=== PATIENT | male | born 1990 | race American Indian/Alaskan Native ===

== ENCOUNTER 2016-11-15 11:26 | Emergency (ER) | payer OTHER ==
--- NOTE | 2016-11-15 12:32 | Emergency Department Report ---
HPI - General Chief Complaint: Urogenital-Male Time Seen by Provider: 11/15/16 12:28 - HPI HPI: This is a 26-year-old Afro-[place] male who presents emergency Department with the complaint of a 4 day history of right testicular pain. He denies any trauma to the area. The patient essentially active and does not always use protection. However he denies any history of STDs. He denies any dysuria, skin color change, swelling. He denies any history of hernia. He does not have a primary care doctor. He has been trying some ibuprofen for his symptoms with some transient relief. He denies any nausea, vomiting, fever, low back pain. ED Past Medical Hx - Past Medical History Previous Medical History?: Yes Additional medical history: obesity - Surgical History Past Surgical History?: Yes Additional Surgical History: Left leg surgery with instrumentation - Social History Smoking Status: Current Every Day Smoker Substance Use Type: Alcohol, Marijuana - Medications Home Medications: Home Medications Medication Instructions Recorded Confirmed Last Taken Type Ciprofloxacin HCl [Ciprofloxacin 500 mg PO BID #20 tablet 11/15/16 Unknown Rx TAB] ED Review of Systems ROS: Stated complaint: TESTICLE PAIN Other details as noted in HPI Comment: All other systems reviewed and negative Constitutional: denies: chills, fever Eyes: denies: eye pain, eye discharge, vision change ENT: denies: ear pain, throat pain Respiratory: denies: cough, shortness of breath, wheezing Cardiovascular: denies: chest pain, palpitations Gastrointestinal: denies: abdominal pain, nausea, diarrhea Genitourinary: testicular pain. denies: dysuria Musculoskeletal: denies: back pain, joint swelling, arthralgia Skin: denies: rash, lesions Neurological: denies: headache, weakness, paresthesias Physical Exam - Physical Exam Vital Signs: Vital Signs 11/15/16 11:34 Temperature 98.4 F Pulse Rate 70 Respiratory 18 Rate Blood Pressure 168/106 O2 Sat by Pulse 100 Oximetry Physical Exam: GENERAL: The patient is well-developed well-nourished. HEENT: Normocephalic. Atraumatic. Extraocular motions are intact. Patient has moist mucous membranes. Pupils equal reactive to light bilaterally. NECK: Supple. Trachea is midline. CHEST/LUNGS: Clear to auscultation. There is no respiratory distress noted. HEART/CARDIOVASCULAR: Regular. There is no tachycardia. There is no gallop rub or murmur. ABDOMEN: Abdomen is soft, nontender. Patient has normal bowel sounds. There is no abdominal distention. Morbidly obese habitus. : Patient has tenderness to palpation to the right side of the scrotum and testicle. No palpable inguinal hernias. No lesions. No discharge from the penis. SKIN: There is no rash. There is no edema. There is no diaphoresis. NEURO: The patient is awake, alert, and oriented. The patient is cooperative. The patient has no focal neurologic deficits. The patient has normal speech and gait. MUSCULOSKELETAL: There is no tenderness or deformity. There is no limitation range of motion. There is no evidence of acute injury. ED Course Vital Signs 11/15/16 11:34 Temperature 98.4 F Pulse Rate 70 Respiratory 18 Rate Blood Pressure 168/106 O2 Sat by Pulse 100 Oximetry ED Medical Decision Making - Radiology Data Radiology results: report reviewed Scrotal/testicular ultrasound shows changes consistent with right epididymitis but perhaps more subtle right orchitis. Small right hydrocele. - Medical Decision Making 26-year-old male presents with a few days of right-sided testicular pain. No visible or palpable hernias. No lesions or skin color change. Ultrasound shows right epididymitis with possible subtle right orchitis and small right hydrocele. Patient will go on a ten-day course of antibiotics and will be given referrals for urology and primary care. - Differential Diagnosis torsion, orchitis, epididymitis, urethritis Critical Care Time: No Critical care attestation.: If time is entered above; I have spent that time in minutes in the direct care of this critically ill patient, excluding procedure time. ED Disposition Clinical Impression: Epididymitis, right, Testicular pain Hypertension Qualifiers: Hypertension type: essential hypertension Qualified Code(s): I10 - Essential ( primary) hypertension Disposition: DISCHARGED TO HOME OR SELFCARE Is pt being admited?: No Does the pt Need Aspirin: No Condition: Good Instructions: Epididymitis (ED), Hypertension (ED) Additional Instructions: Please follow up with one of the primary care physician's arrived given you a referral for. I'll also given new a referral for a local urologist, Dr. Page , to follow up regarding your epididymitis and testicular pain. Take the antibiotics as prescribed. Return to the emergency department with any worsening of your symptoms or any acute distress. Prescriptions: Ciprofloxacin HCl [Ciprofloxacin TAB] 500 mg PO BID #20 tablet Referrals: PRIMARY CARE, [Primary Care Provider] - 3-5 Days ZEINA LOPEZ MD [Staff Physician] - 3-5 Days WASHINGTON GALEANA MD [Staff Physician] - 3-5 Days SARAH PAGE MD [Staff Physician] - 3-5 Days Forms: STI Treatment and Prevention Time of Disposition: 16:03
--- NOTE | 2016-11-15 14:31 | Ultrasound Report ---
FINAL REPORT PROCEDURE: US TESTICULAR DOPPLER COMP TECHNIQUE: Grayscale and color imaging as well as duplex Doppler imaging of the scrotum was performed. HISTORY: Right testicular pain COMPARISON: None FINDINGS: The right testicle measures 4.2 x 2.4 x 2.8 centimeters while the left testicle measures 3.5 x 1.7 x 2.7 centimeters. Testicular blood flow is present bilaterally perhaps slightly increased on the right. There is no solid or cystic intra testicular lesion. There is no testicular microlithiasis. Small right hydrocele is seen. Asymmetrical mild prominence of the right epididymis when compared to the left as well as increased blood flow of the right epididymal body and tail when compared to the left is seen. There is a 4 x 2 x 5 millimeter cyst of the right epididymal head. There is no varicocele. IMPRESSION: Suspect changes of right epididymitis with perhaps more subtle right orchitis. Small right hydrocele.
[2016-11-15 15:56] LABS: Bilirubin,Urine NEG (Negative); Blood,Urine NEG (Negative); Ketones,Urine NEG (Negative); Leukocyte Esterase,Urine SM (Negative); Mucus,Urine FEW /HPF; Nitrite,Urine NEG (Negative); Protein,Urine <15 mg/dL mg/dL (Negative); Urobilinogen,Urine < 2.0 mg/dL (<2.0)
[2016-11-15 16:26] VITALS: BP 147/97
== END 2016-11-15 16:26 | disposition home or self-care (01) ==
LOC: ED 11:26
DX: N45.1 Epididymitis (principal); F17.200 Nicotine dependence, unspecified, uncomplicated; F12.10 Cannabis abuse, uncomplicated
CPT/HCPCS: 81001; 93975

== ENCOUNTER 2018-05-02 03:50 | Emergency (ER) | payer OTHER ==
[2018-05-02 04:19] VITALS: BP 140/83
[2018-05-02] MEDS ORDERED: MOTRIN PO ONE (04:31)
--- NOTE | 2018-05-02 06:07 | XRay Report ---
FINAL REPORT PROCEDURE: XR WRIST 2V RT TECHNIQUE: RIGHT wrist radiographs, AP and lateral views. HISTORY: right wrist pain COMPARISON: No prior studies are available for comparison. FINDINGS: Fracture(s)and/or Dislocation(s): None. Alignment: Normal. Joint space(s): Normal. Soft tissues: Normal. Bone mineralization: Normal. Foreign bodies: None. IMPRESSION: Normal Examination
--- NOTE | 2018-05-02 06:07 | XRay Report ---
FINAL REPORT PROCEDURE: XR SHOULDER 2+V RT TECHNIQUE: Right shoulder radiographs including AP views in internal and external rotation and abduction. CPT 64283 HISTORY: right shoulder pain COMPARISON: No prior studies are available for comparison. FINDINGS: Fracture (s) and/or Dislocation(s): None . Joint space(s): Normal . Soft tissues: Normal . Bone mineralization: Normal . Foreign bodies: None . IMPRESSION: Normal Examination
--- NOTE | 2018-05-02 06:07 | XRay Report ---
FINAL REPORT PROCEDURE: XR FOREARM 1V RT TECHNIQUE: RIGHT forearm radiographs, AP and lateral views. CPT 44418 HISTORY: right forearm pain COMPARISON: No prior studies are available for comparison. FINDINGS: Fracture (s) and/or Dislocation(s): None . Joint space(s): Normal . Soft tissues: Normal . Bone mineralization: Normal . Foreign bodies: None . IMPRESSION: Normal Examination
--- NOTE | 2018-05-02 06:07 | XRay Report ---
FINAL REPORT PROCEDURE: XR HUMERUS 2+V RT TECHNIQUE: RIGHT humerus radiographs, AP and lateral views. HISTORY: right humerus pain COMPARISON: No prior studies are available for comparison. FINDINGS: Fracture (s) and/or Dislocation(s): None . Joint space(s): Normal. Soft tissues: Normal. Bone mineralization: Normal. Foreign bodies: None. IMPRESSION: Normal Examination.
--- NOTE | 2018-05-02 06:07 | XRay Report ---
FINAL REPORT PROCEDURE: XR KNEE BILAT 1-2V TECHNIQUE: Bilateral knee radiographs, AP and lateral views. HISTORY: Bilateral Knee pain COMPARISON: No prior studies are available for comparison. FINDINGS: Fracture (s) and/or Dislocation(s): None . Joint space(s): Normal. Soft tissues: Normal. Bone mineralization: Normal. Foreign bodies: None. IMPRESSION: Normal Examination.
--- NOTE | 2018-05-02 06:07 | XRay Report ---
FINAL REPORT PROCEDURE: XR WRIST 2V LT TECHNIQUE: LEFT wrist radiographs, AP and lateral views. HISTORY: Left wrist pain COMPARISON: No prior studies are available for comparison. FINDINGS: Fracture(s)and/or Dislocation(s): None. Alignment: Normal. Joint space(s): Normal. Soft tissues: Normal. Bone mineralization: Normal. Foreign bodies: None. IMPRESSION: Normal Examination
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
== END 2018-05-02 08:25 | disposition home or self-care (01) ==
LOC: ED 03:50
DX: S86.911A Strain of unspecified muscle(s) and tendon(s) at lower leg level, right leg, initial encounter (principal); S86.912A Strain of unspecified muscle(s) and tendon(s) at lower leg level, left leg, initial encounter; S46.912A Strain of unspecified muscle, fascia and tendon at shoulder and upper arm level, left arm, initial encounter; S46.911A Strain of unspecified muscle, fascia and tendon at shoulder and upper arm level, right arm, initial encounter; V49.59XA Passenger injured in collision with other motor vehicles in traffic accident, initial encounter; Y93.89 Activity, other specified; Y92.89 Other specified places as the place of occurrence of the external cause; Y99.8 Other external cause status